=== PATIENT | female | born 1940 | race Caucasian/White ===

== ENCOUNTER 2021-12-05 09:32 | Inpatient (IN) ==
[2021-12-05] MEDS ORDERED: diphenhydrAMINE 50 MG/1 ML VIAL IV STA (10:18)
[2021-12-05 10:56] LABS: Basophils % 0.4 % (0.0-0.8); Eosinophils # 0.1 10*3/uL (0.0-0.87); Eosinophils % 1.1 % (0.00-10.9); Hematocrit 34.6 VOL% (35.7-47.0); Hemoglobin 11.1 GM/DL (12.0-16.0); Immature Granulocytes % 0.4 %; Immature Granulocytes Absolute 0.02 #; Lymphocytes # 1.1 10*3/uL (1.4-4.0); Lymphocytes % 21.2 % (21.3-54.2); Mean Corpuscular HGB Conc 32.1 GM/DL (32-36); Mean Corpuscular Volume 96.9 FL (87-102); Mean Platelet Volume 11.8 FL (9.6-12.0); Monocytes % 13.3 % (1.7-12.7); Neutrophils % 63.6 % (38.7-73.9); Platelet Count 203 T/CUMM (130-400); Red Blood Count 3.57 MC/CUMM (3.8-5.5); Red Cell Distribution Width 13.5 % (9.3-17.3); White Blood Count 5.3 T/CUMM (4-12)
[2021-12-05 11:28] LABS: Alanine Aminotransferase 22 U/L (13-56); Albumin 2.9 G/DL (3.4-5.0); Alkaline Phosphatase 94 U/L (45-117); Aspartate Amino Transferase 15 U/L (0-37); Bilirubin,Total < 0.39 MG/DL (0.20-1.00); Blood Urea Nitrogen 30 MG/DL (7-18); Calcium 8.3 MG/DL (8.5-10.1); Carbon Dioxide 29 MMOL/L (21-32); Estimated Glom Filtration Rate 42 ML/MIN; Glucose 386 MG/DL (74-106); Osmolality,Calculated 294.8 MOS/KG (273-304); Potassium 4.1 MMOL/L (3.5-5.1); Sodium 137 MMOL/L (136-145); Total Protein 6.3 G/DL (6.4-8.2)
[2021-12-05 11:37] LABS: Bacteria,Urine Many /HPF (Few); Bilirubin,Urine Negative (Negative); Blood, Urine Negative (Negative); Glucose,Urine (UA) >=500 mg/dL (Negative); Ketones,Urine Negative (Negative); Mucus,Urine Occasional /LPF (Occasional); Nitrite,Urine Negative (Negative); Protein,Urine 100 MG/DL; RBC,Urine 13 /HPF (0-4); Squamous Epithelial Cell,Urine Occasional /HPF (0-10); Urine Appearance CLOUDY (Clear); Urine Color Yellow (Yellow); Urine Specific Gravity 1.015 (1.001-1.035); Urine Urobilinogen < 2.0 EU/DL (<2.0)
[2021-12-05] MEDS ORDERED: cefTRIAXone 1,000 MG in SODIUM CHLORIDE 0.9% 100 ML IV STA (11:38)
[2021-12-05 11:41] LABS: Barbiturates Screen,Urine Negative (Negative); Benzodiazepines Screen,Urine Negative (Negative); Cannabinoid Screen,Urine Negative (Negative); Opiate Screen,Urine Negative (Negative); Phencyclidine Screen,Urine Negative (Negative)
[2021-12-05] MEDS ORDERED: GLUCAGON 1 MG VIAL IM PRN ×2 (11:59→16:40)
[2021-12-05] MEDS ORDERED: ACETAMINOPHEN 325 MG TABLET PO PRN (11:59)
[2021-12-05] MEDS ORDERED: ONDANSETRON 4 MG/2 ML VIAL IV PRN (11:59)
[2021-12-05] MEDS ORDERED: DEXTROSE 10% 250 ML BAG IV PRN ×2 (11:59→16:42)
[2021-12-05] MEDS: SODIUM CHLORIDE 0.45% 1,000 ML IV SCH (12:50)
[2021-12-05] MEDS: INSULIN LISPRO 100 UNIT/ML SUBCUT SCH ×2 (17:05→22:04)
[2021-12-05] MEDS: diphenhydrAMINE CAP 25 MG CAPSULE PO SCH (17:06)
[2021-12-05] MEDS: ENOXAPARIN 40 MG/0.4 ML SYRINGE SUBCUT SCH (22:04)
[2021-12-06] MEDS: diphenhydrAMINE CAP 25 MG CAPSULE PO SCH ×4 (01:01→18:15)
[2021-12-06 05:27] LABS: Basophils % 0.7 % (0.0-0.8); Eosinophils # 0.1 10*3/uL (0.0-0.87); Eosinophils % 1.9 % (0.00-10.9); Hematocrit 33.9 VOL% (35.7-47.0); Hemoglobin 10.7 GM/DL (12.0-16.0); Immature Granulocytes % 0.5 %; Immature Granulocytes Absolute 0.02 #; Lymphocytes # 1.4 10*3/uL (1.4-4.0); Lymphocytes % 31.5 % (21.3-54.2); Mean Corpuscular HGB Conc 31.6 GM/DL (32-36); Mean Corpuscular Volume 97.7 FL (87-102); Mean Platelet Volume 12.6 FL (9.6-12.0); Monocytes % 19.6 % (1.7-12.7); Neutrophils % 45.8 % (38.7-73.9); Platelet Count 196 T/CUMM (130-400); Red Blood Count 3.47 MC/CUMM (3.8-5.5); Red Cell Distribution Width 13.6 % (9.3-17.3); White Blood Count 4.3 T/CUMM (4-12)
[2021-12-06 05:54] LABS: Hypochromia 1+; Lymphocytes 22 % (20-55); Microcytosis Slight; Ovalocytes Slight; Segmented Neutrophils 53 % (50-85); Total Cells Counted 100
[2021-12-06 05:55] LABS: Platelet Estimate Adequate
[2021-12-06 08:40] LABS: Calcium 8.9 MG/DL (8.5-10.1); Potassium 4.3 MMOL/L (3.5-5.1)
[2021-12-06] MEDS: INSULIN LISPRO 100 UNIT/ML SUBCUT SCH ×4 (08:54→21:19)
[2021-12-06] MEDS: SODIUM CHLORIDE 0.45% 1,000 ML IV SCH (08:55)
[2021-12-06] MEDS: cefTRIAXone 2,000 MG in SODIUM CHLORIDE 0.9% 100 ML IV SCH (09:26)
[2021-12-06] MEDS: PANTOPRAZOLE 40 MG TABLET PO SCH (09:27)
[2021-12-06] MEDS: hydrALAZINE 10 MG TABLET PO SCH ×2 (10:11→21:19)
[2021-12-06] MEDS: LOSARTAN 50 MG TABLET PO SCH (10:11)
[2021-12-06] MEDS: METOPROLOL SUCCINATE XL 100 MG TABLET PO SCH ×2 (10:11→21:20)
[2021-12-06] MEDS: FOLIC ACID 1 MG TABLET PO SCH (10:12)
[2021-12-06] MEDS: ASPIRIN EC 81 MG TABLET PO SCH (10:12)
[2021-12-06] MEDS: CLOPIDOGREL 75 MG TABLET PO SCH (10:12)
[2021-12-06] MEDS ORDERED: DULoxetine 30 MG CAPSULE PO SCH (11:00)
[2021-12-06] MEDS: INSULIN GLARGINE 100 UNIT/ML SUBCUT SCH (15:07)
[2021-12-06] MEDS: BUMETANIDE 1 MG TABLET PO SCH (21:18)
[2021-12-06] MEDS: ENOXAPARIN 40 MG/0.4 ML SYRINGE SUBCUT SCH (21:19)
[2021-12-06] MEDS: ROSUVASTATIN 20 MG TABLET PO SCH (21:20)
[2021-12-06] MEDS: CLOTRIMAZOLE/BETAMETHASONE CREAM 15 GM TUBE TOP SCH (21:23)
[2021-12-06] MEDS: TRAVOPROST 0.004% OPH SOLN 2.5 ML BOTTLE BOTH EYES SCH (21:25)
[2021-12-07] MEDS: diphenhydrAMINE CAP 25 MG CAPSULE PO SCH ×4 (00:20→17:50)
[2021-12-07] MEDS: SODIUM CHLORIDE 0.45% 1,000 ML IV SCH (04:00)
[2021-12-07 05:10] LABS: Basophils % 0.7 % (0.0-0.8); Eosinophils # 0.1 10*3/uL (0.0-0.87); Eosinophils % 2.2 % (0.00-10.9); Hematocrit 33.5 VOL% (35.7-47.0); Hemoglobin 10.6 GM/DL (12.0-16.0); Immature Granulocytes % 0.2 %; Immature Granulocytes Absolute 0.01 #; Lymphocytes # 1.1 10*3/uL (1.4-4.0); Lymphocytes % 25.5 % (21.3-54.2); Mean Corpuscular HGB Conc 31.6 GM/DL (32-36); Mean Corpuscular Volume 97.4 FL (87-102); Monocytes % 20.8 % (1.7-12.7); Neutrophils % 50.6 % (38.7-73.9); Platelet Count 203 T/CUMM (130-400); Red Blood Count 3.44 MC/CUMM (3.8-5.5); Red Cell Distribution Width 13.6 % (9.3-17.3); White Blood Count 4.5 T/CUMM (4-12)
[2021-12-07 05:30] LABS: Calcium 8.8 MG/DL (8.5-10.1); Osmolality,Calculated 277.7 MOS/KG (273-304); Potassium 4.1 MMOL/L (3.5-5.1)
[2021-12-07 05:39] LABS: Eosinophils 1 % (0-10); Hypochromia Slight; Lymphocytes 31 % (20-55); Microcytosis Slight; Platelet Estimate Adequate; Segmented Neutrophils 55 % (50-85); Total Cells Counted 100
[2021-12-07] MEDS: INSULIN LISPRO 100 UNIT/ML SUBCUT SCH ×4 (08:17→20:53)
[2021-12-07] MEDS: cefTRIAXone 2,000 MG in SODIUM CHLORIDE 0.9% 100 ML IV SCH (08:33)
[2021-12-07] MEDS: MAGNESIUM CHLORIDE 64 MG TABLET PO SCH (08:34)
[2021-12-07] MEDS: ZINC GLUCONATE 50 MG TABLET PO SCH (08:34)
[2021-12-07] MEDS: FOLIC ACID 1 MG TABLET PO SCH (08:34)
[2021-12-07] MEDS: predniSONE 1 MG TABLET PO SCH (08:35)
[2021-12-07] MEDS: predniSONE 5 MG TABLET PO SCH (08:35)
[2021-12-07] MEDS: PANTOPRAZOLE 40 MG TABLET PO SCH (08:35)
[2021-12-07] MEDS: CLOPIDOGREL 75 MG TABLET PO SCH (08:36)
[2021-12-07] MEDS: LOSARTAN 50 MG TABLET PO SCH (08:36)
[2021-12-07] MEDS: ASPIRIN EC 81 MG TABLET PO SCH (08:36)
[2021-12-07] MEDS: BUMETANIDE 1 MG TABLET PO SCH ×2 (08:36→20:52)
[2021-12-07] MEDS: INSULIN GLARGINE 100 UNIT/ML SUBCUT SCH (08:36)
[2021-12-07] MEDS: hydrALAZINE 10 MG TABLET PO SCH ×2 (08:36→20:52)
[2021-12-07] MEDS: CLOTRIMAZOLE/BETAMETHASONE CREAM 15 GM TUBE TOP SCH ×2 (08:37→20:53)
[2021-12-07] MEDS: METOPROLOL SUCCINATE XL 100 MG TABLET PO SCH ×2 (08:37→20:54)
[2021-12-07] MEDS ORDERED: PANTOPRAZOLE 40 MG TABLET PO SCH (09:00)
[2021-12-07] MEDS ORDERED: LORazepam 2 MG/1 ML VIAL IV ONE ×4 (09:00→13:30)
[2021-12-07] MEDS: ENOXAPARIN 40 MG/0.4 ML SYRINGE SUBCUT SCH (20:52)
[2021-12-07] MEDS: ROSUVASTATIN 20 MG TABLET PO SCH (20:52)
[2021-12-07] MEDS: TRAVOPROST 0.004% OPH SOLN 2.5 ML BOTTLE BOTH EYES SCH (20:58)
[2021-12-08] MEDS: diphenhydrAMINE CAP 25 MG CAPSULE PO SCH ×5 (00:30→23:42)
[2021-12-08] MEDS: SODIUM CHLORIDE 0.45% 1,000 ML IV SCH ×2 (00:31→21:13)
[2021-12-08 05:35] LABS: Basophils % 0.8 % (0.0-0.8); Eosinophils # 0.1 10*3/uL (0.0-0.87); Eosinophils % 2.5 % (0.00-10.9); Hematocrit 31.8 VOL% (35.7-47.0); Hemoglobin 10.1 GM/DL (12.0-16.0); Immature Granulocytes % 0.3 %; Immature Granulocytes Absolute 0.01 #; Lymphocytes # 1.1 10*3/uL (1.4-4.0); Lymphocytes % 30.9 % (21.3-54.2); Mean Corpuscular HGB Conc 31.8 GM/DL (32-36); Mean Corpuscular Volume 98.1 FL (87-102); Mean Platelet Volume 12.4 FL (9.6-12.0); Monocytes % 15.2 % (1.7-12.7); Neutrophils % 50.3 % (38.7-73.9); Platelet Count 189 T/CUMM (130-400); Red Blood Count 3.24 MC/CUMM (3.8-5.5); Red Cell Distribution Width 13.2 % (9.3-17.3); White Blood Count 3.6 T/CUMM (4-12)
[2021-12-08 05:52] LABS: Calcium 8.3 MG/DL (8.5-10.1); Osmolality,Calculated 283.7 MOS/KG (273-304); Potassium 3.8 MMOL/L (3.5-5.1)
[2021-12-08] MEDS: INSULIN LISPRO 100 UNIT/ML SUBCUT SCH ×4 (11:28→21:08)
[2021-12-08] MEDS: ASPIRIN EC 81 MG TABLET PO SCH (11:30)
[2021-12-08] MEDS: hydrALAZINE 10 MG TABLET PO SCH ×2 (11:30→21:07)
[2021-12-08] MEDS: BUMETANIDE 1 MG TABLET PO SCH ×2 (11:30→21:07)
[2021-12-08] MEDS: LOSARTAN 50 MG TABLET PO SCH (11:30)
[2021-12-08] MEDS: predniSONE 5 MG TABLET PO SCH (11:31)
[2021-12-08] MEDS: CLOPIDOGREL 75 MG TABLET PO SCH (11:31)
[2021-12-08] MEDS: predniSONE 1 MG TABLET PO SCH (11:31)
[2021-12-08] MEDS: FOLIC ACID 1 MG TABLET PO SCH (11:31)
[2021-12-08] MEDS: INSULIN GLARGINE 100 UNIT/ML SUBCUT SCH (11:31)
[2021-12-08] MEDS: CLOTRIMAZOLE/BETAMETHASONE CREAM 15 GM TUBE TOP SCH ×2 (11:31→21:09)
[2021-12-08] MEDS: PANTOPRAZOLE 40 MG TABLET PO SCH (11:31)
[2021-12-08] MEDS: MAGNESIUM CHLORIDE 64 MG TABLET PO SCH (11:32)
[2021-12-08] MEDS: ZINC GLUCONATE 50 MG TABLET PO SCH (11:32)
[2021-12-08] MEDS: METOPROLOL SUCCINATE XL 100 MG TABLET PO SCH ×2 (11:32→21:08)
[2021-12-08] MEDS: cefTRIAXone 2,000 MG in SODIUM CHLORIDE 0.9% 100 ML IV SCH (11:35)
[2021-12-08] MEDS: ROSUVASTATIN 20 MG TABLET PO SCH (21:07)
[2021-12-08] MEDS: ENOXAPARIN 40 MG/0.4 ML SYRINGE SUBCUT SCH (21:08)
[2021-12-08] MEDS: TRAVOPROST 0.004% OPH SOLN 2.5 ML BOTTLE BOTH EYES SCH (21:10)
[2021-12-09] MEDS: diphenhydrAMINE CAP 25 MG CAPSULE PO SCH ×2 (05:19→13:20)
[2021-12-09 05:25] LABS: Basophils % 0.7 % (0.0-0.8); Eosinophils # 0.1 10*3/uL (0.0-0.87); Eosinophils % 1.9 % (0.00-10.9); Hematocrit 32.9 VOL% (35.7-47.0); Hemoglobin 10.4 GM/DL (12.0-16.0); Immature Granulocytes % 0.2 %; Immature Granulocytes Absolute 0.01 #; Lymphocytes # 1.1 10*3/uL (1.4-4.0); Lymphocytes % 25.7 % (21.3-54.2); Mean Corpuscular HGB Conc 31.6 GM/DL (32-36); Mean Corpuscular Volume 98.2 FL (87-102); Mean Platelet Volume 12.2 FL (9.6-12.0); Monocytes % 15.7 % (1.7-12.7); Neutrophils % 55.8 % (38.7-73.9); Platelet Count 196 T/CUMM (130-400); Red Blood Count 3.35 MC/CUMM (3.8-5.5); Red Cell Distribution Width 13.1 % (9.3-17.3); White Blood Count 4.2 T/CUMM (4-12)
[2021-12-09 05:47] LABS: Calcium 8.5 MG/DL (8.5-10.1); Osmolality,Calculated 283.8 MOS/KG (273-304); Potassium 3.7 MMOL/L (3.5-5.1)
[2021-12-09 05:53] LABS: Anisocytosis 1+; Band Neutrophils 2 % (0-10); Eosinophils 2 % (0-10); Lymphocytes 20 % (20-55); Macrocytosis 1+; Platelet Estimate Normal; Segmented Neutrophils 64 % (50-85); Total Cells Counted 100
[2021-12-09] MEDS: INSULIN LISPRO 100 UNIT/ML SUBCUT SCH ×2 (09:45→13:20)
[2021-12-09] MEDS: INSULIN GLARGINE 100 UNIT/ML SUBCUT SCH (09:45)
[2021-12-09] MEDS: cefTRIAXone 2,000 MG in SODIUM CHLORIDE 0.9% 100 ML IV SCH (09:45)
[2021-12-09] MEDS: predniSONE 1 MG TABLET PO SCH (09:46)
[2021-12-09] MEDS: FOLIC ACID 1 MG TABLET PO SCH (09:46)
[2021-12-09] MEDS: METOPROLOL SUCCINATE XL 100 MG TABLET PO SCH (09:46)
[2021-12-09] MEDS: CLOPIDOGREL 75 MG TABLET PO SCH (09:46)
[2021-12-09] MEDS: PANTOPRAZOLE 40 MG TABLET PO SCH (09:46)
[2021-12-09] MEDS: ZINC GLUCONATE 50 MG TABLET PO SCH (09:46)
[2021-12-09] MEDS: ASPIRIN EC 81 MG TABLET PO SCH (09:46)
[2021-12-09] MEDS: MAGNESIUM CHLORIDE 64 MG TABLET PO SCH (09:46)
[2021-12-09] MEDS: hydrALAZINE 10 MG TABLET PO SCH (09:46)
[2021-12-09] MEDS: predniSONE 5 MG TABLET PO SCH (09:46)
[2021-12-09] MEDS: LOSARTAN 50 MG TABLET PO SCH (09:46)
[2021-12-09] MEDS: BUMETANIDE 1 MG TABLET PO SCH (09:46)
[2021-12-09 16:10] VITALS: BP 158/45
== END 2021-12-09 17:45 | disposition swing bed (61) | DRG 690 ==
LOC: N.ED 09:32 → N.EDINP 11:59 → N.5E 15:25
PROVIDERS: ADMIT Internal Medicine; ATTEND Internal Medicine

== ENCOUNTER 2022-04-08 13:39 | Inpatient (IN) ==
[2022-04-08 14:50] LABS: Basophils % 0.2 % (0.0-0.8); Eosinophils % 0.9 % (0.00-10.9); Hematocrit 33.7 VOL% (35.7-47.0); Hemoglobin 10.8 GM/DL (12.0-16.0); Immature Granulocytes % 0.5 %; Immature Granulocytes Absolute 0.02 #; Lymphocytes % 23.3 % (21.3-54.2); Mean Corpuscular Volume 100.9 FL (87-102); Mean Platelet Volume 10.8 FL (9.6-12.0); Monocytes # 0.5 10*3/uL (0.11-0.8); Monocytes % 10.9 % (1.7-12.7); Neutrophils % 64.2 % (38.7-73.9); Platelet Count 167 T/CUMM (130-400); Red Blood Count 3.34 MC/CUMM (3.8-5.5); Red Cell Distribution Width 13.4 % (9.3-17.3); White Blood Count 4.4 T/CUMM (4-12)
[2022-04-08 15:02] LABS: INR 0.9; PT Patient Result 10.5 SECS (10.5-12.0); Partial Thromboplastin Time 21.8 SECS (23.8-32.1)
[2022-04-08 15:15] LABS: Alanine Aminotransferase 50 U/L (13-56); Albumin 3.4 G/DL (3.4-5.0); Alkaline Phosphatase 73 U/L (45-117); Aspartate Amino Transferase 26 U/L (0-37); Bilirubin,Total < 0.39 MG/DL (0.20-1.00); Blood Urea Nitrogen 22 MG/DL (7-18); Calcium 8.8 MG/DL (8.5-10.1); Carbon Dioxide 25 MMOL/L (21-32); Chloride 105 MMOL/L (98-107); Glucose 316 MG/DL (74-106); Osmolality,Calculated 287.8 MOS/KG (273-304); Sodium 137 MMOL/L (136-145); Total Protein 7.4 G/DL (6.4-8.2)
[2022-04-08] MEDS ORDERED: ONDANSETRON 4 MG/2 ML VIAL IV PRN (16:55)
[2022-04-08] MEDS ORDERED: ACETAMINOPHEN 325 MG TABLET PO PRN (16:55)
[2022-04-08] MEDS ORDERED: GLUCAGON 1 MG VIAL IM PRN ×2 (16:55→22:20)
[2022-04-08] MEDS ORDERED: DEXTROSE 10% 250 ML BAG IV PRN (16:59)
[2022-04-08] MEDS: SODIUM CHLORIDE 0.9% 1,000 ML IV SCH (17:57)
[2022-04-08 18:05] LABS: Risk Ratio 4.21; VLDL Cholesterol 46.2 MG/DL
[2022-04-08 19:40] LABS: Mucus,Urine Occasional /LPF (Occasional); RBC,Urine 20 /HPF (0-4); Squamous Epithelial Cell,Urine Occasional /HPF (0-10)
[2022-04-08 19:42] LABS: Bilirubin,Urine Negative (Negative); Blood, Urine Trace mg/dL (Negative); Glucose,Urine (UA) 500 mg/dL (Negative); Ketones,Urine Negative (Negative); Nitrite,Urine Negative (Negative); Protein,Urine Negative (Negative); Urine Appearance Slightly Cloudy (Clear); Urine Color Yellow (Yellow); Urine Urobilinogen 0.2 eU/dL (<2.0); Urine pH 5.5 (4.5-8.0)
[2022-04-08] MEDS: DOCUSATE SODIUM 100 MG CAPSULE PO SCH (21:30)
[2022-04-08] MEDS ORDERED: FLUTICASONE 50 MCG NASAL SPRAY 16 GM BOTTLE BOTH NARES PRN (22:15)
[2022-04-08] MEDS ORDERED: diphenhydrAMINE CAP 25 MG CAPSULE PO PRN (22:15)
[2022-04-08] MEDS ORDERED: DEXTROSE 50% 25 GM/50 ML VIAL IV PRN (22:20)
[2022-04-09] MEDS: ALBUTEROL 2.5 MG/3 ML NEB RESP TX PRN ×2 (00:25→04:05)
[2022-04-09] MEDS ORDERED: EPINEPHrine 1 MG/10 ML SYRINGE IV ONE (07:32)
[2022-04-09] MEDS ORDERED: VECURONIUM 10 MG VIAL IV ONE ×2 (08:10→08:12)
[2022-04-09] MEDS ORDERED: METOPROLOL SUCCINATE XL 100 MG TABLET PO SCH (09:00)
[2022-04-09] MEDS: INSULIN LISPRO 100 UNIT/ML SUBCUT SCH ×4 (09:17→20:52)
[2022-04-09] MEDS: SODIUM CHLORIDE 0.9% 1,000 ML IV SCH ×4 (09:17→23:33)
[2022-04-09 09:30] LABS: Arterial Base Excess iSTAT -5 MMOL/L (-2.5-2.5); Arterial Bicarbonate iSTAT 24.4 MMOL/L (20-26); Arterial O2 Saturation iSTAT 89 % (95-100); Arterial PCO2 iSTAT 66 MM HG (35-48); Arterial PO2 iSTAT 71 MM HG (80-95); Arterial Total CO2 iSTAT 26 MMO/L (23-27); Arterial pH iSTAT 7.179 (7.35-7.45)
[2022-04-09 10:24] LABS: Bacteria,Urine Occasional /HPF (Few); Hyaline Casts,Urine 14 /LPF (0-3); RBC,Urine 78 /HPF (0-4); Squamous Epithelial Cell,Urine Occasional /HPF (0-10)
[2022-04-09 10:25] LABS: Urine Appearance Slightly Cloudy (Clear); Urine Color Yellow (Yellow); Urine Specific Gravity >= 1.030 (1.001-1.035); Urine pH 5.5 (4.5-8.0)
[2022-04-09 10:26] LABS: Bilirubin,Urine Negative (Negative); Blood, Urine Moderate mg/dL (Negative); Glucose,Urine (UA) 250 mg/dL (Negative); Ketones,Urine Negative (Negative); Nitrite,Urine Negative (Negative); Protein,Urine >=300 mg/dL (Negative)
[2022-04-09] MEDS: hydrALAZINE 10 MG TABLET PO SCH ×2 (10:50→20:51)
[2022-04-09] MEDS: DOCUSATE SODIUM 100 MG CAPSULE PO SCH ×2 (10:50→20:52)
[2022-04-09] MEDS: ZINC GLUCONATE 50 MG TABLET PO SCH (10:54)
[2022-04-09] MEDS: BUMETANIDE 1 MG TABLET PO SCH ×2 (10:54→20:51)
[2022-04-09] MEDS: MAGNESIUM CHLORIDE 64 MG TABLET PO SCH (10:54)
[2022-04-09] MEDS: ASPIRIN EC 81 MG TABLET PO SCH (10:55)
[2022-04-09] MEDS: PANTOPRAZOLE 40 MG TABLET PO SCH (10:55)
[2022-04-09] MEDS: CLOPIDOGREL 75 MG TABLET PO SCH (10:55)
[2022-04-09] MEDS: LOSARTAN 50 MG TABLET PO SCH (10:55)
[2022-04-09] MEDS: methylPREDNISolone SOD SUC 40 MG/1 ML VIAL IV SCH ×2 (10:57→17:58)
[2022-04-09] MEDS: CEFEPIME 1,000 MG in SODIUM CHLORIDE 0.9% 100 ML IV SCH ×3 (11:03→23:01)
[2022-04-09 11:23] LABS: Arterial Base Excess iSTAT -4 MMOL/L (-2.5-2.5); Arterial Bicarbonate iSTAT 23.2 MMOL/L (20-26); Arterial O2 Saturation iSTAT 100 % (95-100); Arterial PCO2 iSTAT 49 MM HG (35-48); Arterial PO2 iSTAT 209 MM HG (80-95); Arterial Total CO2 iSTAT 25 MMO/L (23-27); Arterial pH iSTAT 7.288 (7.35-7.45)
[2022-04-09] MEDS: METOPROLOL TARTRATE 50 MG TABLET PO SCH ×2 (15:10→20:52)
[2022-04-09] MEDS: CLOTRIMAZOLE/BETAMETHASONE CREAM 15 GM TUBE TOP SCH ×2 (16:36→20:52)
[2022-04-09] MEDS: ENOXAPARIN 100 MG/ML SYRINGE SUBCUT SCH (17:58)
[2022-04-09] MEDS: TRAVOPROST 0.004% OPH SOLN 2.5 ML BOTTLE BOTH EYES SCH (20:52)
[2022-04-09] MEDS: ROSUVASTATIN 20 MG TABLET PO SCH (20:52)
[2022-04-10] MEDS: methylPREDNISolone SOD SUC 40 MG/1 ML VIAL IV SCH ×3 (03:04→18:09)
[2022-04-10 03:11] LABS: Basophils % 0.2 % (0.0-0.8); Hematocrit 31.6 VOL% (35.7-47.0); Hemoglobin 10.5 GM/DL (12.0-16.0); Immature Granulocytes % 0.6 %; Immature Granulocytes Absolute 0.06 #; Lymphocytes # 0.6 10*3/uL (1.4-4.0); Lymphocytes % 6.3 % (21.3-54.2); Mean Corpuscular HGB Conc 33.2 GM/DL (32-36); Mean Corpuscular Volume 99.7 FL (87-102); Mean Platelet Volume 10.6 FL (9.6-12.0); Monocytes # 0.8 10*3/uL (0.11-0.8); Monocytes % 7.6 % (1.7-12.7); Neutrophils % 85.3 % (38.7-73.9); Platelet Count 155 T/CUMM (130-400); Red Blood Count 3.17 MC/CUMM (3.8-5.5); Red Cell Distribution Width 13.8 % (9.3-17.3); White Blood Count 10.2 T/CUMM (4-12)
[2022-04-10 03:27] LABS: Alanine Aminotransferase 158 U/L (13-56); Albumin 2.4 G/DL (3.4-5.0); Alkaline Phosphatase 82 U/L (45-117); Aspartate Amino Transferase 111 U/L (0-37); Bilirubin,Total < 0.39 MG/DL (0.20-1.00); Blood Urea Nitrogen 30 MG/DL (7-18); Calcium 7.3 MG/DL (8.5-10.1); Carbon Dioxide 21 MMOL/L (21-32); Chloride 110 MMOL/L (98-107); Glucose 291 MG/DL (74-106); Osmolality,Calculated 299.1 MOS/KG (273-304); Phosphorous 3.6 MG/DL (2.5-4.9); Potassium 4.4 MMOL/L (3.5-5.1); Sodium 142 MMOL/L (136-145); Total Protein 5.7 G/DL (6.4-8.2)
[2022-04-10 03:32] LABS: Band Neutrophils 13 % (0-10); Lymphocytes 6 % (20-55); Metamyelocytes 1 %; Platelet Estimate Adequate; Total Cells Counted 100
[2022-04-10] MEDS ORDERED: MAGNESIUM SULF RIDER 2 GM/50 ML PREMIX IV PRN (03:51)
[2022-04-10] MEDS ORDERED: MAGNESIUM SULF RIDER 4 GM/100 ML PREMIX IV PRN (03:51)
[2022-04-10] MEDS: CEFEPIME 1,000 MG in SODIUM CHLORIDE 0.9% 100 ML IV SCH ×3 (04:10→19:55)
[2022-04-10 04:35] LABS: Arterial Base Excess iSTAT -3 MMOL/L (-2.5-2.5); Arterial Bicarbonate iSTAT 21.1 MMOL/L (20-26); Arterial O2 Saturation iSTAT 100 % (95-100); Arterial PCO2 iSTAT 32 MM HG (35-48); Arterial PO2 iSTAT 419 MM HG (80-95); Arterial Total CO2 iSTAT 22 MMO/L (23-27); Arterial pH iSTAT 7.428 (7.35-7.45)
[2022-04-10] MEDS: SODIUM CHLORIDE 0.9% 1,000 ML IV SCH ×3 (05:38→18:42)
[2022-04-10] MEDS: INSULIN LISPRO 100 UNIT/ML SUBCUT SCH ×6 (08:42→23:59)
[2022-04-10] MEDS: MAGNESIUM CHLORIDE 64 MG TABLET PO SCH (08:43)
[2022-04-10] MEDS: CLOPIDOGREL 75 MG TABLET PO SCH (08:43)
[2022-04-10] MEDS: ASPIRIN EC 81 MG TABLET PO SCH (08:43)
[2022-04-10] MEDS: ZINC GLUCONATE 50 MG TABLET PO SCH (08:43)
[2022-04-10] MEDS: LOSARTAN 50 MG TABLET PO SCH (08:43)
[2022-04-10] MEDS: METOPROLOL TARTRATE 50 MG TABLET PO SCH ×2 (08:44→20:04)
[2022-04-10] MEDS: BUMETANIDE 1 MG TABLET PO SCH ×2 (08:44→20:04)
[2022-04-10] MEDS: hydrALAZINE 10 MG TABLET PO SCH ×2 (08:44→20:04)
[2022-04-10] MEDS: PANTOPRAZOLE 40 MG TABLET PO SCH (08:44)
[2022-04-10] MEDS: DOCUSATE SODIUM 100 MG CAPSULE PO SCH ×2 (08:47→20:04)
[2022-04-10] MEDS: CLOTRIMAZOLE/BETAMETHASONE CREAM 15 GM TUBE TOP SCH ×2 (10:27→20:05)
[2022-04-10] MEDS: INSULIN GLARGINE 100 UNIT/ML SUBCUT SCH (11:00)
[2022-04-10] MEDS: ENOXAPARIN 100 MG/ML SYRINGE SUBCUT SCH (18:08)
[2022-04-10] MEDS: ROSUVASTATIN 20 MG TABLET PO SCH (20:04)
[2022-04-10] MEDS: TRAVOPROST 0.004% OPH SOLN 2.5 ML BOTTLE BOTH EYES SCH (20:05)
[2022-04-11] MEDS: SODIUM CHLORIDE 0.9% 1,000 ML IV SCH ×4 (02:10→23:25)
[2022-04-11 03:26] LABS: Arterial Base Excess iSTAT -3 MMOL/L (-2.5-2.5); Arterial Bicarbonate iSTAT 19.8 MMOL/L (20-26); Arterial O2 Saturation iSTAT 99 % (95-100); Arterial PCO2 iSTAT 28 MM HG (35-48); Arterial PO2 iSTAT 147 MM HG (80-95); Arterial Total CO2 iSTAT 21 MMO/L (23-27); Arterial pH iSTAT 7.461 (7.35-7.45)
[2022-04-11] MEDS: methylPREDNISolone SOD SUC 40 MG/1 ML VIAL IV SCH ×3 (03:26→18:07)
[2022-04-11] MEDS: CEFEPIME 1,000 MG in SODIUM CHLORIDE 0.9% 100 ML IV SCH ×3 (03:26→21:45)
[2022-04-11 03:30] LABS: Basophils % 0.1 % (0.0-0.8); Immature Granulocytes % 1.6 %; Immature Granulocytes Absolute 0.18 #; Lymphocytes # 0.8 10*3/uL (1.4-4.0); Lymphocytes % 7.1 % (21.3-54.2); Mean Corpuscular HGB Conc 32.6 GM/DL (32-36); Mean Corpuscular Volume 97.8 FL (87-102); Monocytes # 1.1 10*3/uL (0.11-0.8); Monocytes % 9.8 % (1.7-12.7); Neutrophils % 81.4 % (38.7-73.9); Platelet Count 155 T/CUMM (130-400); Red Cell Distribution Width 14.5 % (9.3-17.3); White Blood Count 11.3 T/CUMM (4-12)
[2022-04-11 03:31] LABS: Hematocrit 26.4 VOL% (35.7-47.0); Hemoglobin 8.6 GM/DL (12.0-16.0)
[2022-04-11] MEDS: INSULIN LISPRO 100 UNIT/ML SUBCUT SCH ×5 (03:32→21:45)
[2022-04-11 03:49] LABS: Calcium 7.3 MG/DL (8.5-10.1); Phosphorous 3.3 MG/DL (2.5-4.9); Potassium 3.7 MMOL/L (3.5-5.1)
[2022-04-11 03:50] LABS: Band Neutrophils 2 % (0-10); Lymphocytes 5 % (20-55); Total Cells Counted 100
[2022-04-11 03:51] LABS: Platelet Estimate Adequate
[2022-04-11] MEDS ORDERED: POTASSIUM CHLORIDE RIDER 10 MEQ/100 ML PREMIX IV PRN (03:55)
[2022-04-11] MEDS: POTASSIUM CHLORIDE RIDER 20 MEQ/100 ML PREMIX IV PRN (04:26)
[2022-04-11] MEDS: INSULIN GLARGINE 100 UNIT/ML SUBCUT SCH (08:15)
[2022-04-11] MEDS: PANTOPRAZOLE 40 MG VIAL IV SCH (08:15)
[2022-04-11] MEDS: BUMETANIDE 1 MG TABLET PO SCH ×2 (08:15→23:24)
[2022-04-11] MEDS: hydrALAZINE 10 MG TABLET PO SCH ×2 (08:15→23:24)
[2022-04-11] MEDS: MAGNESIUM CHLORIDE 64 MG TABLET PO SCH ×2 (08:16→08:30)
[2022-04-11] MEDS: METOPROLOL TARTRATE 50 MG TABLET PO SCH ×2 (08:16→23:24)
[2022-04-11] MEDS: ASPIRIN CHEW 81 MG TABLET PO SCH (08:16)
[2022-04-11] MEDS: LOSARTAN 50 MG TABLET PO SCH (08:16)
[2022-04-11] MEDS: ZINC GLUCONATE 50 MG TABLET PO SCH (08:16)
[2022-04-11] MEDS: CLOPIDOGREL 75 MG TABLET PO SCH (08:16)
[2022-04-11] MEDS: DOCUSATE SODIUM 100 MG CAPSULE PO SCH ×2 (08:16→23:24)
[2022-04-11] MEDS: CLOTRIMAZOLE/BETAMETHASONE CREAM 15 GM TUBE TOP SCH ×2 (08:31→21:48)
[2022-04-11] MEDS ORDERED: METHOTREXATE 50 MG/2 ML VIAL SUBCUT SCH (09:00)
[2022-04-11] MEDS: ENOXAPARIN 100 MG/ML SYRINGE SUBCUT SCH (18:05)
[2022-04-11] MEDS: TRAVOPROST 0.004% OPH SOLN 2.5 ML BOTTLE BOTH EYES SCH (21:48)
[2022-04-11] MEDS: ROSUVASTATIN 20 MG TABLET PO SCH (23:24)
[2022-04-12] MEDS: INSULIN LISPRO 100 UNIT/ML SUBCUT SCH ×6 (00:35→21:47)
[2022-04-12] MEDS: CEFEPIME 1,000 MG in SODIUM CHLORIDE 0.9% 100 ML IV SCH ×3 (03:30→21:47)
[2022-04-12] MEDS: methylPREDNISolone SOD SUC 40 MG/1 ML VIAL IV SCH ×3 (03:30→17:32)
[2022-04-12 04:08] LABS: Basophils % 0.1 % (0.0-0.8); Hematocrit 26.4 VOL% (35.7-47.0); Hemoglobin 8.5 GM/DL (12.0-16.0); Immature Granulocytes % 0.4 %; Immature Granulocytes Absolute 0.05 #; Lymphocytes # 0.9 10*3/uL (1.4-4.0); Lymphocytes % 7.8 % (21.3-54.2); Mean Corpuscular HGB Conc 32.2 GM/DL (32-36); Mean Corpuscular Volume 100.4 FL (87-102); Mean Platelet Volume 11.7 FL (9.6-12.0); Monocytes # 0.9 10*3/uL (0.11-0.8); Monocytes % 7.9 % (1.7-12.7); Neutrophils % 83.8 % (38.7-73.9); Platelet Count 169 T/CUMM (130-400); Red Blood Count 2.63 MC/CUMM (3.8-5.5); Red Cell Distribution Width 14.3 % (9.3-17.3); White Blood Count 11.1 T/CUMM (4-12)
[2022-04-12 04:23] LABS: Osmolality,Calculated 300.7 MOS/KG (273-304); Potassium 3.4 MMOL/L (3.5-5.1)
[2022-04-12 04:34] LABS: Lymphocytes 6 % (20-55); Platelet Estimate Adequate; Total Cells Counted 100
[2022-04-12 04:50] LABS: ABG Base Excess -3.7 MMOL/L (-2.5-2.5); ABG HCO3 21.3 MMOL/L (20-26); ABG Oxygen Saturation 99.4 % (95-100); ABG PCO2 23.9 MM HG (35-48); ABG PH 7.497 (7.35-7.45)
[2022-04-12] MEDS: CLOPIDOGREL 75 MG TABLET PO SCH (08:18)
[2022-04-12] MEDS: METOPROLOL TARTRATE 50 MG TABLET PO SCH ×3 (08:18→23:04)
[2022-04-12] MEDS: LOSARTAN 50 MG TABLET PO SCH (08:18)
[2022-04-12] MEDS: hydrALAZINE 10 MG TABLET PO SCH ×2 (08:18→22:04)
[2022-04-12] MEDS: BUMETANIDE 1 MG TABLET PO SCH ×2 (08:18→22:04)
[2022-04-12] MEDS: INSULIN GLARGINE 100 UNIT/ML SUBCUT SCH (08:18)
[2022-04-12] MEDS: ZINC GLUCONATE 50 MG TABLET PO SCH (08:18)
[2022-04-12] MEDS: ASPIRIN CHEW 81 MG TABLET PO SCH (08:19)
[2022-04-12] MEDS: DOCUSATE SODIUM 100 MG CAPSULE PO SCH ×2 (08:19→22:04)
[2022-04-12] MEDS: PANTOPRAZOLE 40 MG VIAL IV SCH (08:19)
[2022-04-12] MEDS: CLOTRIMAZOLE/BETAMETHASONE CREAM 15 GM TUBE TOP SCH ×2 (08:20→22:05)
[2022-04-12] MEDS: MAGNESIUM CHLORIDE 64 MG TABLET PO SCH (08:31)
[2022-04-12] MEDS: DEXMEDETOMIDINE 200 MCG in SODIUM CHLORIDE 0.9% 48 ML IV PRN ×2 (10:52→14:15)
[2022-04-12] MEDS: SODIUM CHLORIDE 0.9% 1,000 ML IV SCH ×2 (11:19→20:54)
[2022-04-12] MEDS: DEXMEDETOMIDINE 400 MCG in SODIUM CHLORIDE 0.9% 96 ML IV PRN ×2 (16:37→21:51)
[2022-04-12] MEDS: ENOXAPARIN 100 MG/ML SYRINGE SUBCUT SCH (17:10)
[2022-04-12] MEDS: ROSUVASTATIN 20 MG TABLET PO SCH (22:04)
[2022-04-12] MEDS: TRAVOPROST 0.004% OPH SOLN 2.5 ML BOTTLE BOTH EYES SCH (22:05)
[2022-04-13] MEDS: hydrALAZINE 20 MG/1 ML VIAL IV PRN ×2 (00:47→06:06)
[2022-04-13] MEDS: INSULIN LISPRO 100 UNIT/ML SUBCUT SCH ×5 (00:48→17:12)
[2022-04-13] MEDS: DEXMEDETOMIDINE 400 MCG in SODIUM CHLORIDE 0.9% 96 ML IV PRN ×3 (01:53→10:40)
[2022-04-13] MEDS: methylPREDNISolone SOD SUC 40 MG/1 ML VIAL IV SCH ×3 (02:46→18:16)
[2022-04-13 02:56] LABS: Hematocrit 29.4 VOL% (35.7-47.0); Hemoglobin 9.7 GM/DL (12.0-16.0); Immature Granulocytes % 0.4 %; Immature Granulocytes Absolute 0.04 #; Lymphocytes # 0.6 10*3/uL (1.4-4.0); Mean Corpuscular Volume 97.4 FL (87-102); Mean Platelet Volume 11.5 FL (9.6-12.0); Monocytes # 0.4 10*3/uL (0.11-0.8); Monocytes % 3.7 % (1.7-12.7); Neutrophils % 89.9 % (38.7-73.9); Platelet Count 159 T/CUMM (130-400); Red Blood Count 3.02 MC/CUMM (3.8-5.5); Red Cell Distribution Width 13.9 % (9.3-17.3); White Blood Count 10.7 T/CUMM (4-12)
[2022-04-13 03:24] LABS: Osmolality,Calculated 304.7 MOS/KG (273-304); Potassium 3.2 MMOL/L (3.5-5.1)
[2022-04-13 03:52] LABS: Arterial Base Excess iSTAT -3 MMOL/L (-2.5-2.5); Arterial Bicarbonate iSTAT 18.8 MMOL/L (20-26); Arterial O2 Saturation iSTAT 100 % (95-100); Arterial PCO2 iSTAT 24 MM HG (35-48); Arterial PO2 iSTAT 158 MM HG (80-95); Arterial Total CO2 iSTAT 19 MMO/L (23-27); Arterial pH iSTAT 7.509 (7.35-7.45)
[2022-04-13] MEDS: CEFEPIME 1,000 MG in SODIUM CHLORIDE 0.9% 100 ML IV SCH ×3 (05:07→19:58)
[2022-04-13] MEDS: SODIUM CHLORIDE 0.9% 1,000 ML IV SCH ×2 (05:08→18:30)
[2022-04-13] MEDS: POTASSIUM CHLORIDE RIDER 20 MEQ/100 ML PREMIX IV PRN ×3 (05:09→09:57)
[2022-04-13] MEDS: ASPIRIN CHEW 81 MG TABLET PO SCH (08:22)
[2022-04-13] MEDS: BUMETANIDE 1 MG TABLET PO SCH ×2 (08:23→20:42)
[2022-04-13] MEDS: CLOPIDOGREL 75 MG TABLET PO SCH (08:23)
[2022-04-13] MEDS: ZINC GLUCONATE 50 MG TABLET PO SCH (08:24)
[2022-04-13] MEDS: LOSARTAN 50 MG TABLET PO SCH (08:24)
[2022-04-13] MEDS: METOPROLOL TARTRATE 50 MG TABLET PO SCH ×2 (08:24→20:42)
[2022-04-13] MEDS: hydrALAZINE 10 MG TABLET PO SCH (08:24)
[2022-04-13] MEDS: PANTOPRAZOLE 40 MG VIAL IV SCH (08:30)
[2022-04-13] MEDS: INSULIN GLARGINE 100 UNIT/ML SUBCUT SCH (08:31)
[2022-04-13] MEDS: CLOTRIMAZOLE/BETAMETHASONE CREAM 15 GM TUBE TOP SCH ×2 (08:35→20:47)
[2022-04-13] MEDS: DOCUSATE SODIUM 100 MG CAPSULE PO SCH ×2 (08:35→20:42)
[2022-04-13] MEDS: MAGNESIUM CHLORIDE 64 MG TABLET PO SCH (09:57)
[2022-04-13] MEDS: ENOXAPARIN 100 MG/ML SYRINGE SUBCUT SCH (18:15)
[2022-04-13] MEDS: ROSUVASTATIN 20 MG TABLET PO SCH (20:42)
[2022-04-13] MEDS: TRAVOPROST 0.004% OPH SOLN 2.5 ML BOTTLE BOTH EYES SCH (20:48)
[2022-04-13] MEDS ORDERED: INSULIN LISPRO 100 UNIT/ML SUBCUT SCH (21:00)
[2022-04-13] MEDS: ALBUTEROL 2.5 MG/3 ML NEB RESP TX PRN (21:06)
[2022-04-14] MEDS: INSULIN LISPRO 100 UNIT/ML SUBCUT SCH ×4 (01:03→18:08)
[2022-04-14] MEDS: ALBUTEROL 2.5 MG/3 ML NEB RESP TX PRN (01:30)
[2022-04-14] MEDS ORDERED: FUROSEMIDE 40 MG/4 ML VIAL ONE (01:36)
[2022-04-14] MEDS ORDERED: FUROSEMIDE 40 MG/4 ML VIAL IV ONE ×2 (01:40→11:30)
[2022-04-14] MEDS ORDERED: LORazepam 2 MG/1 ML VIAL IV ONE ×2 (01:45→02:17)
[2022-04-14] MEDS: methylPREDNISolone SOD SUC 40 MG/1 ML VIAL IV SCH ×3 (02:12→18:08)
[2022-04-14 03:33] LABS: Arterial Base Excess iSTAT -6 MMOL/L (-2.5-2.5); Arterial Bicarbonate iSTAT 17.6 MMOL/L (20-26); Arterial O2 Saturation iSTAT 98 % (95-100); Arterial PCO2 iSTAT 29 MM HG (35-48); Arterial PO2 iSTAT 105 MM HG (80-95); Arterial Total CO2 iSTAT 18 MMO/L (23-27); Arterial pH iSTAT 7.392 (7.35-7.45)
[2022-04-14 03:46] LABS: Basophils % 0.1 % (0.0-0.8); Hematocrit 30.7 VOL% (35.7-47.0); Hemoglobin 9.9 GM/DL (12.0-16.0); Immature Granulocytes % 0.8 %; Lymphocytes # 0.5 10*3/uL (1.4-4.0); Mean Corpuscular HGB Conc 32.2 GM/DL (32-36); Mean Corpuscular Volume 98.7 FL (87-102); Mean Platelet Volume 11.2 FL (9.6-12.0); Monocytes # 0.1 10*3/uL (0.11-0.8); Neutrophils % 94.1 % (38.7-73.9); Platelet Count 179 T/CUMM (130-400); Red Blood Count 3.11 MC/CUMM (3.8-5.5); Red Cell Distribution Width 14.4 % (9.3-17.3); White Blood Count 11.9 T/CUMM (4-12)
[2022-04-14 04:10] LABS: Calcium 7.3 MG/DL (8.5-10.1); Lymphocytes 2 % (20-55); Osmolality,Calculated 310.6 MOS/KG (273-304); Platelet Estimate Adequate; Potassium 3.6 MMOL/L (3.5-5.1); Total Cells Counted 100
[2022-04-14] MEDS: CEFEPIME 1,000 MG in SODIUM CHLORIDE 0.9% 100 ML IV SCH ×3 (05:27→21:11)
[2022-04-14] MEDS: MAGNESIUM CHLORIDE 64 MG TABLET PO SCH (08:29)
[2022-04-14] MEDS: ZINC GLUCONATE 50 MG TABLET PO SCH (08:29)
[2022-04-14] MEDS: amLODIPine 5 MG TABLET PO SCH (08:29)
[2022-04-14] MEDS: CLOPIDOGREL 75 MG TABLET PO SCH (08:30)
[2022-04-14] MEDS: DULoxetine 30 MG CAPSULE PO SCH (08:30)
[2022-04-14] MEDS: DOCUSATE SODIUM 100 MG CAPSULE PO SCH ×2 (08:30→21:11)
[2022-04-14] MEDS: ASPIRIN CHEW 81 MG TABLET PO SCH (08:30)
[2022-04-14] MEDS: LOSARTAN 50 MG TABLET PO SCH (08:30)
[2022-04-14] MEDS: PANTOPRAZOLE 40 MG TABLET PO SCH (08:31)
[2022-04-14] MEDS: BUMETANIDE 1 MG TABLET PO SCH ×2 (08:31→21:11)
[2022-04-14] MEDS: METOPROLOL TARTRATE 50 MG TABLET PO SCH ×2 (08:31→21:11)
[2022-04-14] MEDS: INSULIN GLARGINE 100 UNIT/ML SUBCUT SCH (08:32)
[2022-04-14] MEDS: CLOTRIMAZOLE/BETAMETHASONE CREAM 15 GM TUBE TOP SCH (08:38)
[2022-04-14] MEDS: ALBUTEROL 2.5 MG/3 ML NEB RESP TX SCH ×5 (08:39→23:55)
[2022-04-14] MEDS ORDERED: POTASSIUM CHLORIDE 20 MEQ TABLET PO ONE (11:30)
[2022-04-14] MEDS: ENOXAPARIN 100 MG/ML SYRINGE SUBCUT SCH (18:07)
[2022-04-14] MEDS: ROSUVASTATIN 20 MG TABLET PO SCH (21:11)
[2022-04-15] MEDS: CLOTRIMAZOLE/BETAMETHASONE CREAM 15 GM TUBE TOP SCH ×3 (01:06→22:08)
[2022-04-15] MEDS: TRAVOPROST 0.004% OPH SOLN 2.5 ML BOTTLE BOTH EYES SCH ×2 (01:06→22:09)
[2022-04-15] MEDS: INSULIN LISPRO 100 UNIT/ML SUBCUT SCH ×4 (03:35→18:24)
[2022-04-15] MEDS: methylPREDNISolone SOD SUC 40 MG/1 ML VIAL IV SCH ×3 (03:36→18:24)
[2022-04-15] MEDS: ALBUTEROL 2.5 MG/3 ML NEB RESP TX SCH ×5 (03:50→20:00)
[2022-04-15] MEDS: CEFEPIME 1,000 MG in SODIUM CHLORIDE 0.9% 100 ML IV SCH ×3 (05:29→21:06)
[2022-04-15 05:47] LABS: Hematocrit 27.9 VOL% (35.7-47.0); Hemoglobin 9.1 GM/DL (12.0-16.0); Immature Granulocytes % 2.6 %; Immature Granulocytes Absolute 0.12 #; Lymphocytes # 0.6 10*3/uL (1.4-4.0); Lymphocytes % 13.6 % (21.3-54.2); Mean Corpuscular HGB Conc 32.6 GM/DL (32-36); Mean Corpuscular Volume 98.2 FL (87-102); Mean Platelet Volume 11.5 FL (9.6-12.0); Monocytes # 0.1 10*3/uL (0.11-0.8); Monocytes % 1.1 % (1.7-12.7); Neutrophils % 82.7 % (38.7-73.9); Platelet Count 142 T/CUMM (130-400); Red Blood Count 2.84 MC/CUMM (3.8-5.5); Red Cell Distribution Width 14.5 % (9.3-17.3); White Blood Count 4.7 T/CUMM (4-12)
[2022-04-15 06:06] LABS: Calcium 7.8 MG/DL (8.5-10.1); Osmolality,Calculated 309.7 MOS/KG (273-304); Potassium 3.9 MMOL/L (3.5-5.1)
[2022-04-15] MEDS ORDERED: INSULIN GLARGINE 100 UNIT/ML SUBCUT SCH (09:00)
[2022-04-15] MEDS: METOPROLOL TARTRATE 50 MG TABLET PO SCH ×2 (10:40→22:07)
[2022-04-15] MEDS: LOSARTAN 50 MG TABLET PO SCH (10:40)
[2022-04-15] MEDS: DULoxetine 30 MG CAPSULE PO SCH (10:40)
[2022-04-15] MEDS: MAGNESIUM CHLORIDE 64 MG TABLET PO SCH (10:40)
[2022-04-15] MEDS: ZINC GLUCONATE 50 MG TABLET PO SCH (10:40)
[2022-04-15] MEDS: DOCUSATE SODIUM 100 MG CAPSULE PO SCH ×2 (10:40→22:08)
[2022-04-15] MEDS: PANTOPRAZOLE 40 MG TABLET PO SCH (10:40)
[2022-04-15] MEDS: ASPIRIN CHEW 81 MG TABLET PO SCH (10:40)
[2022-04-15] MEDS: BUMETANIDE 1 MG TABLET PO SCH ×2 (10:40→22:07)
[2022-04-15] MEDS: amLODIPine 5 MG TABLET PO SCH (10:40)
[2022-04-15] MEDS: CLOPIDOGREL 75 MG TABLET PO SCH (10:41)
[2022-04-15] MEDS ORDERED: ENOXAPARIN 40 MG/0.4 ML SYRINGE SUBCUT SCH (18:00)
[2022-04-15] MEDS: ROSUVASTATIN 20 MG TABLET PO SCH (22:07)
[2022-04-16] MEDS: ALBUTEROL 2.5 MG/3 ML NEB RESP TX SCH ×3 (00:34→08:20)
[2022-04-16] MEDS: INSULIN LISPRO 100 UNIT/ML SUBCUT SCH ×2 (01:44→08:59)
[2022-04-16] MEDS: methylPREDNISolone SOD SUC 40 MG/1 ML VIAL IV SCH (01:44)
[2022-04-16] MEDS: CEFEPIME 1,000 MG in SODIUM CHLORIDE 0.9% 100 ML IV SCH (03:44)
[2022-04-16 05:55] LABS: Basophils % 0.2 % (0.0-0.8); Hematocrit 26.3 VOL% (35.7-47.0); Hemoglobin 8.5 GM/DL (12.0-16.0); Immature Granulocytes % 0.7 %; Immature Granulocytes Absolute 0.03 #; Lymphocytes % 22.1 % (21.3-54.2); Mean Corpuscular HGB Conc 32.3 GM/DL (32-36); Mean Corpuscular Volume 98.9 FL (87-102); Mean Platelet Volume 11.7 FL (9.6-12.0); Monocytes # 0.2 10*3/uL (0.11-0.8); Monocytes % 3.7 % (1.7-12.7); NRBC # 0.02 10*3/uL; Neutrophils % 73.3 % (38.7-73.9); Platelet Count 116 T/CUMM (130-400); Red Blood Count 2.66 MC/CUMM (3.8-5.5); Red Cell Distribution Width 14.6 % (9.3-17.3); White Blood Count 4.3 T/CUMM (4-12)
[2022-04-16 06:09] LABS: Calcium 7.6 MG/DL (8.5-10.1); Osmolality,Calculated 303.1 MOS/KG (273-304); Potassium 3.6 MMOL/L (3.5-5.1)
[2022-04-16 08:30] VITALS: BP 115/75
[2022-04-16] MEDS ORDERED: INSULIN GLARGINE 100 UNIT/ML SUBCUT SCH (09:00)
[2022-04-16] MEDS ORDERED: EPINEPHrine 1 MG/10 ML SYRINGE IV ONE ×3 (09:34→10:35)
[2022-04-16] MEDS ORDERED: SODIUM BICARBONATE 50 MEQ/50 ML SYRINGE IV ONE ×3 (09:36→10:37)
[2022-04-16] MEDS ORDERED: MAGNESIUM SULFATE 1 GM/2 ML VIAL IV ONE (09:37)
[2022-04-16] MEDS ORDERED: DEXTROSE 50% 25 GM/50 ML SYRINGE IV ONE (09:39)
[2022-04-16] MEDS ORDERED: EPINEPHrine 1 MG/ML VIAL ONE ×2 (09:44→10:19)
[2022-04-16] MEDS ORDERED: CALCIUM CHLORIDE 1,000 MG/10 ML SYRINGE IV ONE (09:44)
[2022-04-16] MEDS ORDERED: PHENYLEPHRINE DRIP 40 MG/250 ML PREMIX IV ONE (10:10)
[2022-04-16 10:20] LABS: Lymphocytes 14 % (20-55); Tear Drop Cells Few; Total Cells Counted 100
[2022-04-16 10:21] LABS: Anisocytosis 1+; Ovalocytes Few; Platelet Estimate Adequate; Stomatocytes Few
[2022-04-16 10:39] LABS: Basophils % 0.2 % (0.0-0.8); Hemoglobin 7.7 GM/DL (12.0-16.0); Immature Granulocytes Absolute 0.05 #; Lymphocytes # 1.8 10*3/uL (1.4-4.0); Lymphocytes % 34.2 % (21.3-54.2); Mean Corpuscular HGB Conc 30.8 GM/DL (32-36); Mean Corpuscular Volume 103.3 FL (87-102); Monocytes # 0.2 10*3/uL (0.11-0.8); NRBC # 0.24 10*3/uL; Neutrophils % 60.6 % (38.7-73.9); Platelet Count 68 T/CUMM (130-400); Red Blood Count 2.42 MC/CUMM (3.8-5.5); Red Cell Distribution Width 14.8 % (9.3-17.3); White Blood Count 5.2 T/CUMM (4-12)
[2022-04-16 10:52] LABS: INR 1.2; PT Patient Result 12.8 SECS (10.5-12.0); Partial Thromboplastin Time 21.6 SECS (23.7-32.9)
[2022-04-16] MEDS ORDERED: PANTOPRAZOLE 40 MG VIAL IV SCH (11:00)
[2022-04-16 11:12] LABS: Albumin 1.6 G/DL (3.4-5.0); Bilirubin,Total 1.4 MG/DL (0.20-1.00); Calcium 11.1 MG/DL (8.5-10.1); Potassium 4.2 MMOL/L (3.5-5.1); Total Protein 5.1 G/DL (6.4-8.2)
[2022-04-16] MEDS ORDERED: INSULIN LISPRO 100 UNIT/ML SUBCUT SCH (12:00)
[2022-04-16 12:17] LABS: Lymphocytes 26 % (20-55); Nucleated Red Blood Cells 5 (0-5); Ovalocytes Few; Platelet Estimate Adequate; Polychromasia Slight; Tear Drop Cells Few; Total Cells Counted 100
[2022-04-16] MEDS ORDERED: VANCOMYCIN INJ 2,000 MG in SODIUM CHLORIDE 0.9% 500 ML IV SCH (13:00)
== END 2022-04-16 10:37 | disposition expired | DRG 69 ==
LOC: N.ED 13:39 → N.EDINP 13:39 → SUATTDRO 16:01 → N.3E 18:47 → N.ICU 04-09 07:46 → SUATTDRO 04-09 08:26 → N.TELES 04-14 17:22 → N.CC 04-16 09:47
PROVIDERS: ADMIT Internal Medicine; ATTEND Internal Medicine